=== PATIENT | male | born 1995 | race Hispanic/Latino ===

== ENCOUNTER 2018-03-11 02:32 | Emergency (ER) | payer OTHER ==
--- NOTE | 2018-03-11 03:36 | ER ---
Nurse's Notes [facility] Name: Colten Whitfield Age: 22 yrs Sex: Male : 1995 Arrival Date: 03/11/2018 Time: 02:35 Bed 8 Private MD: Diagnosis: Closed, acute, non-displaced fracture of right 5th metacarpal Presentation: 03/11 02:42 Presenting complaint: Patient states: "I think I broke my hand" Patient report hitting ao a wall about 3 hours ago. Transition of care: patient was not received from another setting of care. Onset of symptoms was March 10, 2018 at 23:00. Risk Assessment: Do you want to hurt yourself or someone else? Patient reports no desire to harm self or others. Initial Sepsis Screen: Does the patient meet any 2 criteria? No. Patient's initial sepsis screen is negative. Does the patient have a suspected source of infection? No. Patient's initial sepsis screen is negative. Care prior to arrival: None. 02:42 Method Of Arrival: Ambulatory ao 02:42 Acuity: GINO 4 ao Triage Assessment: 02:47 General: Appears in no apparent distress. comfortable, Behavior is calm, cooperative. ao Injury Description: Puncture is Patient punch a wall about three hours ago. Historical: - Allergies: 02:44 No Known Allergies; ao - Home Meds: 02:44 None [Active]; ao - PMHx: 02:44 None; ao - PSHx: 02:44 None; ao - Immunization history:: Adult Immunizations up to date. - Social history:: Smoking status: Patient uses tobacco products, denies chronic smoking, but will smoke occasionally, Patient uses alcohol, occasionally. Patient/guardian denies using street drugs, IV drugs. - Ebola Screening: : Patient negative for fever greater than or equal to 101.5 degrees Fahrenheit, and additional compatible Ebola Virus Disease symptoms Patient denies exposure to infectious person No symptoms or risks identified at this time. - Family history:: not pertinent. - Hospitalizations: : No recent hospitalization is reported. Screenin:48 Abuse screen: Denies threats or abuse. Denies injuries from another. Nutritional ao screening: No deficits noted. Tuberculosis screening: No symptoms or risk factors identified. Fall Risk None identified. Assessment: 02:45 General: Behavior is calm, cooperative. Pain: Complains of pain in left hand Pain does ao not radiate. Pain currently is 3 out of 10 on a pain scale. Neuro: Level of Consciousness is awake, alert, obeys commands, Oriented to person, place, time, situation, Appropriate for age Moves all extremities. Full function Speech is normal. Cardiovascular: Denies chest pain, shortness of breath, Capillary refill < 3 seconds Patient's skin is warm and dry. Respiratory: Airway is patent Respiratory effort is even, unlabored, Respiratory pattern is regular, symmetrical. GI: Abdomen is flat, non-distended. : No signs and/or symptoms were reported regarding the genitourinary system. EENT: No signs and/or symptoms were reported regarding the EENT system. Derm: Skin is intact, Skin is pink, warm \\T\\ dry. normal, Skin temperature is warm. Musculoskeletal: Circulation, motion, and sensation intact. Range of motion: intact in all extremities. 04:07 Reassessment: Dc instructions given to patient. patient agree to follow up with Dr ramya Henderson. No questions at this time. Vital Signs: 02:43 BP 131 / 91; Pulse 100; Resp 16; Temp 98.9(O); Pulse Ox 95% on R/A; Weight 47.63 kg ao (R); Height 5 ft. 3 in. (160.02 cm); Pain 3/10; 03:45 BP 124 / 84; Pulse 92; Resp 16; Pulse Ox 100% ; ao 02:43 Body Mass Index 18.60 (47.63 kg, 160.02 cm) ao ED Course: 02:35 Patient arrived in ED. al2 02:36 Pankaj Willett MD is Attending Physician. rn 02:41 Efrain Watts RN is Primary Nurse. ao 02:43 Triage completed. ao 02:44 Arm band placed on right wrist. Patient placed in an exam room, on a stretcher, on ao pulse oximetry, Patient notified of wait time. 02:48 Patient has correct armband on for positive identification. Pulse ox on. NIBP on. ao 03:09 X-ray completed. Portable x-ray completed in exam room. Patient tolerated procedure kw well. 03:10 XRAY Hand RIGHT 3 View In Process Unspecified. EDMS 03:35 Michael Henderson MD is Referral Physician. rn 04:06 No provider procedures requiring assistance completed. Patient did not have IV access ao during this emergency room visit. Administered Medications: No medications were administered Outcome: 03:36 Discharge ordered by . rn 04:06 Discharged to home ambulatory. ao 04:06 Condition: stable 04:06 Discharge instructions given to patient, Instructed on discharge instructions, follow up and referral plans. Demonstrated understanding of instructions, follow-up care. 04:08 Patient left the ED. ao Signatures: Dispatcher [employer] EDMS Pankaj Willett MD MD rn Whitley, Kimberlee kw Ortiz, Alex RN Anali Benitez
--- NOTE | 2018-03-11 03:36 | EDPHYS ---
Physician Documentation [facility] Name: Colten Whitfield Age: 22 yrs Sex: Male : 1995 Arrival Date: 03/11/2018 Time: 02:35 Bed 8 Private MD: ED Physician Pankaj Willett HPI: 03/11 02:58 This 22 yrs old Male presents to ER via Ambulatory with complaints of Hand rn Injury, Hand Pain. 02:58 The patient or guardian reports injury, pain. The complaints affect the right hand rn diffusely. Onset: The symptoms/episode began/occurred 1 hour(s) ago. Associated signs and symptoms: Pertinent negatives: cyanosis distally, decreased sensation distally, numbness distally, tingling distally. Severity of symptoms: At their worst the symptoms were moderate, in the emergency department the symptoms are unchanged. The patient has not experienced similar symptoms in the past. Reports punched brick wall with right hand, is right handed, no other injury, + swelling, doesn't think is broken but girlfriend told him to come.. Historical: - Allergies: 02:44 No Known Allergies; ao - Home Meds: 02:44 None [Active]; ao - PMHx: 02:44 None; ao - PSHx: 02:44 None; ao - Immunization history:: Adult Immunizations up to date. - Social history:: Smoking status: Patient uses tobacco products, denies chronic smoking, but will smoke occasionally, Patient uses alcohol, occasionally. Patient/guardian denies using street drugs, IV drugs. - Ebola Screening: : Patient negative for fever greater than or equal to 101.5 degrees Fahrenheit, and additional compatible Ebola Virus Disease symptoms Patient denies exposure to infectious person No symptoms or risks identified at this time. - Family history:: not pertinent. - Hospitalizations: : No recent hospitalization is reported. ROS: 02:58 Constitutional: Negative for fever, chills, and weight loss, MS/Extremity: + injury and rn swelling to right hand Skin: + abrasion Exam: 02:58 Constitutional: This is a well developed, well nourished patient who is awake, alert, rn and in no acute distress. MS/ Extremity: Pulses equal, no cyanosis. Neurovascular intact. Full, normal range of motion. No scissoring when making a fist, + tender right 4th/5th MCs Vital Signs: 02:43 BP 131 / 91; Pulse 100; Resp 16; Temp 98.9(O); Pulse Ox 95% on R/A; Weight 47.63 kg ao (R); Height 5 ft. 3 in. (160.02 cm); Pain 3/10; 03:45 BP 124 / 84; Pulse 92; Resp 16; Pulse Ox 100% ; ao 02:43 Body Mass Index 18.60 (47.63 kg, 160.02 cm) ao MDM: 02:43 Patient medically screened. rn 03:34 Differential diagnosis: closed fracture. Data reviewed: vital signs, nurses notes, rn radiologic studies, plain films, and as a result, I will discharge patient. Counseling: I had a detailed discussion with the patient and/or guardian regarding: the historical points, exam findings, and any diagnostic results supporting the discharge/admit diagnosis, radiology results, the need for outpatient follow up, to return to the emergency department if symptoms worsen or persist or if there are any questions or concerns that arise at home. Special discussion: I discussed with the patient/guardian in detail that at this point there is no indication for admission to the hospital. It is understood, however, that if the symptoms persist or worsen the patient needs to return immediately for re-evaluation. Based on the history and exam findings, there is no indication for further emergent testing or inpatient evaluation. I discussed with the patient/guardian the need to see the orthopedic surgeon for further evaluation of the symptoms. ED course: No scissoring, pain controlled, splinted and will f/u with ortho. 03/11 02:46 Order name: XRAY Hand RIGHT 3 View rn 03/11 03:36 Order name: Splint - Ulnar Gutter; Complete Time: 04:00 rn Administered Medications: No medications were administered Disposition: 03/11/18 03:36 Discharged to Home. Impression: Closed, acute, non-displaced fracture of right 5th metacarpal. - Condition is Stable. - Discharge Instructions: Boxer's Fracture, Cast or Splint Care, Adult. - Medication Reconciliation Form, Thank You Letter, Antibiotic Education, Prescription Opioid Use, Work release form form. - Follow up: Michael Henderson MD; When: 5 - 6 days; Reason: Recheck today's complaints, Re-evaluation by your physician. - Problem is new. - Symptoms have improved. Signatures: Dispatcher [employer] EDMS Paknaj Willett MD MD rn Ortiz, Alex, RN RN ao Corrections: (The following items were deleted from the chart) 04:08 03:36 03/11/2018 03:36 Discharged to Home. Impression: Closed, acute, non-displaced ao fracture of right 5th metacarpal. Condition is Stable. Forms are Medication Reconciliation Form, Thank You Letter, Antibiotic Education, Prescription Opioid Use. Follow up: Micahel Henderson; When: 5 - 6 days; Reason: Recheck today's complaints, Re-evaluation by your physician. Problem is new. Symptoms have improved. rn
[2018-03-11 04:15] VITALS: TEMP 98.9
[2018-03-11 04:16] VITALS: BP 124/84; O2SAT 100
--- NOTE | 2018-03-11 09:03 | RAD REPORT ---
EXAM DESCRIPTION: RAD - Hand Right 3 View - 03/11/2018 3:13 am CLINICAL HISTORY: Hand pain, blunt force trauma COMPARISON: None. FINDINGS: Distal fifth metacarpal fracture is present with very minimal ventral angulation. No distr action or overlap. Soft tissue swelling is present in the fifth MCP joint region and over the dorsum of the hand. No other fracture changes seen. No acute bone or joint finding otherwise noted. No foreign body or ot her soft tissue abnormality. IMPRESSION: Distal fifth metacarpal fracture with no significant distraction or angulation.
== END 2018-03-11 04:08 | disposition home or self-care (01) ==
LOC: ER 02:32
PROC: 2W3CX1Z Immobilization of Right Lower Arm using Splint (ICD-10-PCS; principal; 2018-03-11)
DX: S62.306A Unspecified fracture of fifth metacarpal bone, right hand, initial encounter for closed fracture (principal); W22.09XA Striking against other stationary object, initial encounter; Y93.89 Activity, other specified; Y92.9 Unspecified place or not applicable; Z72.0 Tobacco use
CPT/HCPCS: 99283